=== PATIENT | female | born 1950 | race Caucasian/White ===

== ENCOUNTER → 2017-11-12 | Outpatient (CLI) | payer MEDICARE ==
[~2017-11-12] MED LIST: ADJUSTABLE COMM1 MIS; AMBI10TA PO; BETH25TA2 PO; BUPR150T3 PO; CALC1TAB87 PO; DICL50TA3 PO; DICY10CA12 PO; FEXO15TA PO; FLUT1SPR5 EACH NARE; LEVO100T5 PO; MONT10TA2 PO; VITA1000 PO; WALKER WHEELS/F1 MIS; WHEA1POW9 PO
[2017-11-12 09:04] LABS: HEMATOCRIT 39.8 % (35.0-46.0); HEMOGLOBIN 13.8 GM/DL (11.6-15.3); MEAN CELL VOLUME 88.3 FL (80.0-100.0); MEAN CORPUSCULAR HEMOGLOBIN 30.6 PG (27.0-34.0); MEAN CORPUSCULAR HGB CONC 34.7 % (32.0-36.0); MEAN PLATELET VOLUME 8.7 FL (7.0-11.0); PLATELET COUNT 274 TH/MM3 (150-450); RED BLOOD COUNT 4.51 MIL/MM3 (4.00-5.30); RED CELL DISTRIBUTION WIDTH 13.5 % (11.6-17.2); WHITE BLOOD COUNT 6.5 TH/MM3 (4.0-11.0)
[2017-11-12 09:10] LABS: INTERNATIONAL NORMALIZED RATIO 0.9 RATIO; PROTHROMBIN TIME - PATIENT 9.6 SEC (9.8-11.6)
[2017-11-12 09:35] LABS: ALBUMIN 3.5 GM/DL (3.4-5.0); AST (GOT) 13 U/L (15-37); BICARBONATE 27.6 MEQ/L (21.0-32.0); BLOOD UREA NITROGEN 27 MG/DL (7-18); CALCIUM 8.6 MG/DL (8.5-10.1); CHLORIDE 108 MEQ/L (98-107); CREATININE 0.96 MG/DL (0.50-1.00); GLOMERULAR FILTRATION RATE 58 ML/MIN (>89); GLUCOSE,FASTING 102 MG/DL (74-99); SODIUM (NA) 140 MEQ/L (136-145)
[2017-11-12 09:37] LABS: ALT (GPT) 19 U/L (10-53)
[2017-11-12 09:39] LABS: ALKALINE PHOSPHATASE 105 U/L (45-117); TOTAL BILIRUBIN ADULT 0.3 MG/DL (0.2-1.0); TOTAL PROTEIN 7.1 GM/DL (6.4-8.2)
[2017-11-12 10:35] LABS: BILIRUBIN, URINE NEG (NEG); BLOOD, URINE NEG (NEG); GLUCOSE,URINE NEG (NEG); KETONE, URINE NEG (NEG); MUCUS URINE FEW /lpf (OCC); NITRITE,URINE NEG (NEG); PH, URINE 5.5 (5.0-8.5); SQUAMOUS EPITHELIAL CELL URINE 3 /hpf (0-5); URINE COLOR YELLOW (YELLW/STRAW); URINE LEUKOCYTE ESTERASE TRACE (NEG)
== END ==
LOC: CPRE 08:19
PROVIDERS: ATTEND Surgery
DX: Z01.812 Encounter for preprocedural laboratory examination (principal); M79.609 Pain in unspecified limb
CPT/HCPCS: 36415; 80053; 81001; 85027; 85610; 85730

== ENCOUNTER 2017-11-18 08:13 | Inpatient (IN) | payer MEDICARE ==
--- NOTE | 2017-11-14 15:09 | MH ---
cc: Dong YU M.D. DATE OF ADMISSION 11/18/2017 ADMITTING DIAGNOSIS Osteoarthritic degeneration right hip, now being admitted for a right total hip arthroplasty. HISTORY OF PRESENT ILLNESS This pleasant 67-year-old female is being admitted today for a right total hip arthroplasty due to severe painful osteoarthritic degeneration right hip. PAST MEDICAL HISTORY 1. Anxiety. 2. Hypothyroidism. 3. Back pain. MEDICATIONS Current medications: 1. Levothyroxine. 2. Dicyclomine. 3. Bupropion. 4. Bethanechol. 5. Voltaren; stopped before surgery. 6. Ambien. PAST SURGICAL HISTORY 1. Bladder prolapse repair. 2. Cataract surgery. 3. Tonsillectomy. REVIEW OF SYSTEMS Noncontributory. FAMILY HISTORY Noncontributory. SOCIAL HISTORY She does not smoke, drinks alcohol occasionally. ALLERGIES NICKEL. PHYSICAL EXAMINATION GENERAL: We find a 67-year-old female, well-developed, well-nourished, oriented x3, complaining of pain in her right hip. VITAL SIGNS: Blood pressure 122/89, pulse 76 and regular, respirations 16, temperature 97.9, pulse oximetry 97% on room air. HEENT: Eyes PERRLA, EOMI. Ears, nose and mouth clear. NECK: Supple. LUNGS: Clear. HEART: Regular rate. ABDOMEN: Soft. Positive bowel sounds. Nontender. EXTREMITIES: The right hip has decreased range of motion. She is neurovascularly intact to her toes. IMPRESSION The impression at this time is severe painful osteoarthritic degeneration, right hip. PLAN Admission for right total arthroplasty today. The patient was given a prescription for postoperative pain and anticoagulation control in the office. She understands to use Hibiclens scrub and Bactroban preoperatively. She plans on going home with home health care after surgical stay in the hospital. MD AGUSTÍN Mcrae/ROJAS /2:37 PM /2:40 PM
[~2017-11-18] VITALS: Ht 162.6 cm; Wt 82.4 kg
[~2017-11-18 08:13] MED LIST changes: -ADJUSTABLE COMM1 MIS; -BETH25TA2 PO; -WALKER WHEELS/F1 MIS; -WHEA1POW9 PO
[2017-11-18] MEDS ORDERED: CHLORHEXIDINE GLUCONATE 2 % 1 PACK (2 CLOTHS) TOPICAL PRN (09:00)
[2017-11-18] MEDS ORDERED: TRANEXAMIC ACID IV SCH ×2 (09:00→12:00)
[2017-11-18] MEDS ORDERED: SODIUM CHLORIDE 0.9% IV SCH ×2 (09:00→12:00)
[2017-11-18] MEDS ORDERED: CHLORHEXIDINE GLUCONATE 4% SOLN 120 ML BTL TOPICAL SCH (09:00)
[2017-11-18] MEDS ORDERED: ceFAZolin 2 GM PREMIX 50 ML IV SCH (09:00)
[2017-11-18] MEDS ORDERED: POVIDONE IODINE 5% (ANTISEPSIS KIT) 4 APPLICATIONS EACH NARE PRN (09:00)
[2017-11-18] MEDS ORDERED: METOPROLOL TARTRATE 25 MG TAB PO PRN (09:00)
[2017-11-18] MEDS ORDERED: EXPAREL PERI-ARTICULAR INJECTION (TOTAL VOL. 120 ML) P-ARTICULR SCH ×2 (09:00)
[2017-11-18] MEDS ORDERED: VANCOMYCIN 1000 MG/NS 250 ML (for <70 kg) IV SCH ×2 (09:00)
[2017-11-18] MEDS ORDERED: SODIUM CHLORID 0.9% 500 ML IV PRN (09:00)
[2017-11-18] MEDS ORDERED: LACTATED RINGER'S 1000 ML IV PRN (09:00)
[2017-11-18] MEDS ORDERED: WHEA1POW9 PO (09:38)
[2017-11-18] MEDS ORDERED: ceFAZolin INJ 1,000 MG VIAL ONE (10:00)
--- NOTE | 2017-11-18 10:52 | HHI.FF ---
Face to Face Verification Diagnosis: (1) Status post total hip replacement, right Physical Therapy Gait training Hip: Total hip, Protocol: Right, Posterior hip precautions, Abduction pillow while in bed, Progress to weight bearing Canvas Knee Splint: When in bed & 2 pillows btw thighs Nursing RN: 3 days/week x 2 weeks Dressing Changes: Do not change dressing I have seen patient Abby Jack on 11/18/17. My clinical findings support the need for the requested home health care services because: Limited ability to care for self High risk of falls I certify that my clinical findings support that this patient is homebound because: Unsteady gait/balance Dong Neil MD Nov 18, 2017 10:52
[2017-11-18] MEDS ORDERED: ADJUSTABLE COMM1 MIS (10:54)
[2017-11-18] MEDS ORDERED: WALKER WHEELS/F1 MIS (10:54)
[2017-11-18] MEDS ORDERED: Post-op Orders (for Pharmacy) XX ONE (11:00)
[2017-11-18] MEDS ORDERED: MISCELLANEOUS NURSING INFORMATION XX PRN (11:00)
[2017-11-18] MEDS ORDERED: NALOXONE HCL 0.4 MG/ML AMP IV PUSH PRN (11:00)
[2017-11-18] MEDS ORDERED: ACETAMINOPHEN/HYDROcodone 325 MG/7.5 MG TAB PO PRN (11:00)
[2017-11-18] MEDS ORDERED: TRANEXAMIC ACID INJ 0 MG in SODIUM CHLORIDE 0.9% INJ 100 ML IV SCH (11:00)
[2017-11-18] MEDS ORDERED: BISACODYL 10 MG SUPP RECTAL PRN (11:00)
[2017-11-18] MEDS ORDERED: PROPOFOL 500 MG/50 ML INJ 100 ML ONE (11:01)
[2017-11-18] MEDS ORDERED: PHENYLEPH/NS 1000 MCG/10 ML SYR IV ONE (12:00)
[2017-11-18] MEDS ORDERED: LACTATED RINGER'S 1000 ML INJ 2,000 ML IV ONE (12:00)
[2017-11-18] MEDS ORDERED: ePHEDrine/NS 25 MG/5 ML SYRINGE IV ONE (12:00)
[2017-11-18] MEDS ORDERED: LORATADINE 10 MG TAB PO PRN (13:00)
[2017-11-18] MEDS: DICYCLOMINE HCL 10 MG CAP PO SCH ×3 (13:00→20:22)
[2017-11-18] MEDS ORDERED: DO NOT ADM ANY ANTICOAGULANT DRUGS PRN (14:15)
[2017-11-18] MEDS ORDERED: MIDAZOLAM HCL 2 MG/2 ML VIAL ONE (14:25)
--- NOTE | 2017-11-18 14:51 | RADRPT ---
EXAM DATE/TIME: 11/18/2017 14:40 [place] COMPARISON: No previous studies available for comparison. INDICATIONS : Post op right hip. MEDICAL HISTORY : None. SURGICAL HISTORY : None. ENCOUNTER: Initial ACUITY: 1 day PAIN SCORE: Non-responsive. LOCATION: Right hip. FINDINGS: The patient is status post a total hip arthroplasty with a bipolar prosthesis. Prosthesis is well-sea maxim. Alignment is anatomic. A fracture is not appreciated. CONCLUSION: Anatomic alignment. Martin Fontana MD FACR on November 18, 2017 at 14:49 Board Certified Radiologist. This report was verified electronically.
[2017-11-18] MEDS: LACTATED RINGER'S 1000 ML INJ 1,000 ML IV SCH ×2 (14:58→20:23)
--- NOTE | 2017-11-18 15:15 | PD.CONS ---
HPI Service [facility] Hospitalists Consult Requested By Dr. Neil Reason for Consult Medical management Primary Care Physician Alisha Hernandez MD Diagnoses: (1) Osteoarthritis of right hip (2) Anxiety (3) Hypothyroidism (4) Status post total hip replacement, right History of Present Illness 67-year-old female admitted for right hip arthroplasty. The patient has had issues with severe deteriorating osteoarthritis of the right hip. Apparently failed conservative management. She was admitted for surgical intervention. Hospitalist service consulted for medical management. Chart extensively reviewed. Patient has a history of hypothyroidism and anxiety. She reports that these conditions has been fairly well controlled. She is seen postoperatively. She reports her pain is well controlled. No nausea. No new complaints. Review of Systems Constitutional: DENIES: Fever, Chills Musculoskeletal: COMPLAINS OF: Joint pain Except as stated in HPI: all other systems reviewed are Neg Past Family Social History Allergies: Coded Allergies: nickel (Verified Adverse Reaction, Severe, Rash, 11/18/17) Past Medical History Osteoarthritis Hypothyroidism Anxiety Gastroparesis Past Surgical History Bladder prolapse repair Tonsillectomy Cataract surgery Status post right hip arthroplasty Reported Medications Reported Meds & Active Scripts Active Reported Benefiber (Wheat Dextrin) 3 Gram/3.8 Gram Powder 1 Pkt PO DAILY Irma Allergy (Fexofenadine HCl) 180 Mg Tab 180 Mg PO DAILY PRN Singulair (Montelukast Sodium) 10 Mg Tab 10 Mg PO HS PRN Flonase Nasal Byers (Fluticasone Nasal Byers) 50 Mcg/Act Byers 50 Mcg EACH NARE BID Ambien (Zolpidem Tartrate) 10 Mg Tab 10 Mg PO HS PRN Calcium 600 with Vitamin D (Calcium Carbonate-Cholecalciferol) 600-400 mg-Unit Tab 1 Tab PO DAILY Vitamin D-1000 (Cholecalciferol) 1,000 Unit Tab 4,000 Units PO DAILY Diclofenac Sodium DR (Diclofenac Sodium) 50 Mg Tabdr 50 Mg PO BID Bupropion HCl ER 24 HR (Bupropion HCl) 150 Mg Tab Unknown Dose PO DAILY Dicyclomine (Dicyclomine HCl) 10 Mg Cap 10 Mg PO QID Levothyroxine (Levothyroxine Sodium) 100 Mcg Tab 100 Mcg PO DAILY Family History Reviewed and is noncontributory. Social History Patient denies tobacco, alcohol, or illicit drug use. Physical Exam Vital Signs Vital Signs Date Time Temp Pulse Resp B/P (MAP) Pulse Ox O2 Delivery O2 Flow Rate FiO2 11/18/17 15:00 66 20 124/60 (81) 100 Room Air 11/18/17 14:45 59 19 119/71 (87) 100 Room Air 11/18/17 14:30 60 22 94/53 (67) 100 Nasal Cannula 2 11/18/17 14:22 96.2 11/18/17 14:20 96.2 67 20 101/57 (72) 98 Nasal Cannula 2 11/18/17 09:39 98.7 59 16 148/80 (102) 95 Physical Exam GENERAL: This is a well-nourished, well-developed patient, in no apparent distress. SKIN: No rashes, ecchymoses or lesions. Cool and dry. HEAD: Atraumatic. Normocephalic. No temporal or scalp tenderness. EYES: Pupils equal round and reactive. Extraocular motions intact. No scleral icterus. No injection or drainage. ENT: Nose without bleeding, purulent drainage or septal hematoma. Throat without erythema, tonsillar hypertrophy or exudate. Uvula midline. Airway patent. NECK: Trachea midline. No JVD or lymphadenopathy. Supple, nontender, no meningeal signs. CARDIOVASCULAR: Regular rate and rhythm without murmurs, gallops, or rubs. RESPIRATORY: Clear to auscultation. Breath sounds equal bilaterally. No wheezes , rales, or rhonchi. GASTROINTESTINAL: Abdomen soft, non-tender, nondistended. No hepato-splenomegaly , or palpable masses. No guarding. MUSCULOSKELETAL: Right lower extremity in immobilizer. Neurovascularly intact at the foot. NEUROLOGICAL: Awake and alert. Cranial nerves II through XII intact. Motor and sensory grossly within normal limits. Five out of 5 muscle strength in all muscle groups. Normal speech. Imaging Last Impressions Hip X-Ray 11/18/17 1047 Signed Impressions: Service Date/Time: Saturday, November 18, 2017 14:40 - CONCLUSION: Anatomic alignment. Martin Fontana MD FACR Assessment and Plan Problem List: (1) Status post total hip replacement, right ICD Code: Z96.641 - Presence of right artificial hip joint Plan: Routine postoperative care Pain management. Physical therapy Further plans per orthopedics. (2) Osteoarthritis of right hip ICD Code: M16.11 - Unilateral primary osteoarthritis, right hip (3) Hypothyroidism ICD Code: E03.9 - Hypothyroidism, unspecified Plan: Continue home dose Synthroid. (4) Anxiety ICD Code: F41.9 - Anxiety disorder, unspecified Plan: Appeared to be fairly well controlled. Continue bupropion Abdoulaye Chow MD Nov 18, 2017 15:15
--- NOTE | 2017-11-18 17:05 | HHI.PR ---
Immediate Post Op Note Procedure Date: Nov 18, 2017 Pre Op Diagnosis: severe painful osteoarthritic degeneration right hip. Post Op Diagnosis: osteoarthritic degeneration right hip. Surgeon: Dong Neil MD Fur Stretcher(s): sheila DOUGLAS Procedure: Right total hip Arthroplasty Complications: none Specimen(s) removed: none Estimated blood loss: 400cc Anesthesia: General Drains: None IVF Urinary Output (mLs): 0 (no lincoln) Tourniquet time (min at mmHg) none Patient to: PACU Patient Condition: Good Implant/Devices: SEE IMPLANT LOG (if applicable) Date/Time of Procedure: SEE SURGICAL CARE RECORD Sheila Cerda Nov 18, 2017 17:05
[2017-11-18] MEDS: ACETAMINOPHEN/HYDROcodone 325 MG/7.5 MG TAB PO PRN ×2 (17:54→23:06)
[2017-11-18] MEDS ORDERED: *MEPERIDINE 25 MG INJ VIAL PERIprocedural Use ONLY ONE (18:09)
[2017-11-18 19:00] VITALS: BP 149/73; PULSE 79; RESP 17; TEMP 100.2; O2SAT 95
[2017-11-18] MEDS: MAGNESIUM HYDROXIDE SUSP 30 ML CUP PO PRN (20:22)
[2017-11-18] MEDS: FLUTICASONE PROPIONATE 50 MCG/ACT 16 GM NASAL SPRAY EACH NARE SCH (20:22)
[2017-11-18] MEDS ORDERED: BETH25TA2 PO (20:25)
[2017-11-18] MEDS: ZOLPIDEM TARTRATE 10 MG TAB PO PRN ×2 (20:29→23:58)
[2017-11-18] MEDS ORDERED: MONTELUKAST SODIUM 10 MG TAB PO PRN (21:00)
[2017-11-18] MEDS: ONDANSETRON HCL 4 MG/2 ML VIAL IVP PRN (23:59)
[2017-11-19] VITALS (7 sets, daily range): BP systolic 110–128; BP diastolic 58–69; PULSE 72–88; RESP 17–18; TEMP 97.4–101.3; O2SAT 91–94
[2017-11-19] MEDS: ACETAMINOPHEN/HYDROcodone 325 MG/7.5 MG TAB PO PRN (05:08)
[2017-11-19] MEDS: LACTATED RINGER'S 1000 ML INJ 1,000 ML IV SCH ×2 (05:09→20:53)
[2017-11-19] MEDS: LEVOTHYROXINE SODIUM 100 MCG TAB PO SCH (05:13)
[2017-11-19 06:26] LABS: HEMATOCRIT 34.1 % (35.0-46.0); HEMOGLOBIN 11.7 GM/DL (11.6-15.3)
--- NOTE | 2017-11-19 06:48 | MP ---
cc: Dong NEIL M.D. DATE OF SURGERY 11/18/2017 PREOPERATIVE DIAGNOSIS Osteoarthritic degeneration right hip. POSTOPERATIVE DIAGNOSIS Osteoarthritic degeneration right hip. SURGERY PERFORMED Right total hip arthroplasty using Aesculap components, size 14 standard stem with a 36 short ceramic head, a 54 shell, with a 36 liner and a 6.5 x 24-mm screw. SURGEON Dr. Neil MUSICAL ENGINEER MISAEL Samuels ANESTHESIA Spinal. PROCEDURE The patient was brought to the Operating Room, where after successful induction of spinal anesthesia was placed on the operating room table in the left lateral decubitus position. The right hip, thigh and leg were prepped and draped in the usual manner. A posterolateral approach was then utilized by making an incision over the proximal portion of the femur lateral aspect, carried across the greater trochanter, carried posterior in a curved incision toward the buttock. The incision was carried down through the subcutaneous tissue, through the fibers of the tensor fascia alma and gluteus tai to expose the greater trochanteric bursa. This was then removed by sharp and blunt dissection. The hip was then internally rotated to expose the insertions of the short external rotators of the hip and were incised at their insertion into the greater trochanter and reflected posterior to protect the sciatic nerve. These were held with a Charnley retractor to better visualize the hip joint. The capsule was identified and removed by sharp dissection. The hip was then dislocated by internal rotation and flexion of the hip. The femoral calcar was then measured using the trial components for the appropriate length cut of the neck using an oscillating saw. After the cut was made the head was removed. The acetabulum was then approached and measured, the acetabulum reamed with the acetabular reamers. Next, the femoral calcar was approached by first inserting a canal finder followed by rigid reamers, followed by a cookie-cutter to the appropriate size, in this case being a #15. The broach was left in place and a planer used to plane the calcar to a smooth finish. The broach was then removed. The trial components were then inserted into place, the hip reduced, found to track smoothly with no evidence of subluxation or dislocation. All trial components were removed. The wound was irrigated copiously with antibiotic solution and Water Pik. The actual components were then inserted and impacted into place using the Aesculap components, size 14 standard stem with a 36 short ceramic head, a 54 shell, with a 36 liner and a 6.5 x 24-mm screw. The hip was reduced, found to track smoothly with no evidence of subluxation or dislocation. The wound was irrigated copiously with antibiotic solution, meticulous hemostasis achieved. 60 cc of Exparel were used around the hip joint, staying away from the sciatic nerve for postop pain control. The remains of the capsule were approximated using interrupted #1 Vicryl, the deep fascia approximated with running #2 Quill, the subcutaneous tissue approximated using interrupted and running 2-0 and 3-0 Monocryl suture, Steri-Strips and sterile dressing, a knee immobilizer and abduction pillow brace. The sciatic nerve was identified and protected throughout the procedure. The estimated blood loss was 400 cc. No drain utilized. Sponge and suture counts were correct. The patient tolerated the procedure well and left the operating room in satisfactory condition. MISAEL Samuels, was present during the entire procedure to include patient positioning and the procedure. The medical necessity of the nurse practitioner professional nursing assistant was indicated in this case due to the surgical complexity of the case itself. During the surgical case the business office technology instructor was working the back table while my surveyor instrument assistant MISAEL was directly assisting me. J. Abhinav Neil MD JRAleta/SSB /1:43 PM /6:19 AM
[2017-11-19] MEDS: ONDANSETRON HCL 4 MG/2 ML VIAL IVP PRN (08:05)
[2017-11-19] MEDS: CHOLECALCIFEROL (VIT D3) 1000 UNIT TAB PO SCH (08:09)
[2017-11-19] MEDS: CALCIUM/VITAMIN D 250 MG/125 U TAB PO SCH (08:09)
[2017-11-19] MEDS: DICYCLOMINE HCL 10 MG CAP PO SCH ×4 (08:09→20:50)
[2017-11-19] MEDS: FLUTICASONE PROPIONATE 50 MCG/ACT 16 GM NASAL SPRAY EACH NARE SCH ×2 (08:10→20:51)
[2017-11-19] MEDS ORDERED: WHEAT DEXTRIN PO SCH (09:00)
[2017-11-19] MEDS ORDERED: PROMETHAZINE HCL 25 MG SUPP RECTAL PRN (10:30)
[2017-11-19] MEDS ORDERED: METOCLOPRAMIDE HCL 10 MG/2 ML VIAL IV PUSH PRN (10:30)
--- NOTE | 2017-11-19 11:59 | PD.ORT.PN ---
Subjective Subjective Remarks Pt having problem with nausea. Now controlled with Phenergan suppository. Objective Vitals Vital Signs Date Time Temp Pulse Resp B/P (MAP) Pulse Ox O2 Delivery O2 Flow Rate FiO2 11/19/17 08:00 98.0 82 18 117/61 (79) 91 11/19/17 05:48 21 11/19/17 04:20 101.3 82 17 128/60 (82) 92 11/19/17 00:35 100.2 81 17 124/64 (84) 92 11/18/17 19:00 100.2 79 17 149/73 (98) 95 11/18/17 18:50 98.4 70 15 138/95 (109) 97 Room Air 11/18/17 18:00 72 18 146/70 (95) 95 Room Air 11/18/17 17:00 76 17 116/88 (97) 95 Room Air 11/18/17 16:30 66 18 126/61 (82) 95 Room Air 11/18/17 16:15 97.8 67 15 115/59 (77) 98 Room Air 11/18/17 16:00 63 19 128/62 (84) 95 Room Air 11/18/17 15:45 60 16 121/58 (79) 98 Room Air 11/18/17 15:30 56 16 126/65 (85) 97 Room Air 11/18/17 15:15 55 19 126/63 (84) 100 Room Air 11/18/17 15:15 96.2 11/18/17 15:00 66 20 124/60 (81) 100 Room Air 11/18/17 14:45 59 19 119/71 (87) 100 Room Air 11/18/17 14:30 60 22 94/53 (67) 100 Nasal Cannula 2 11/18/17 14:22 96.2 11/18/17 14:20 96.2 67 20 101/57 (72) 98 Nasal Cannula 2 I/O 11/18/17 11/18/17 11/18/17 11/19/17 11/19/17 11/19/17 06:59 14:59 22:59 06:59 14:59 22:59 Intake Total 3000 ml 673 ml 1250 ml 480 ml Output Total 400 ml 1650 ml Balance 2600 ml -977 ml 1250 ml 480 ml Intake Oral 465 ml 480 ml IV Total 208 ml 1250 ml Other 3000 ml Output Urine Total 1650 ml Estimated Blood Loss 400 ml # Voids 1 1 2 # Bowel Movements 0 0 Result Diagram: 11/19/17 0425 Objective Remarks In bed at present time. NV intact to toes. No calf tenderness. Assessment & Plan Ortho Post Op Day #: 1 Problem List: Assessment and Plan OOB, PT, Home tomorrow if no nausea and VS stable and afebrile. Dong Neil MD Nov 19, 2017 11:59
[2017-11-19] MEDS: APIXABAN 2.5 MG TABLET PO SCH ×2 (13:49→23:43)
--- NOTE | 2017-11-19 14:47 | HHI.PR ---
Subjective Remarks Patient had nausea and vomiting this morning. Phenergan was ordered. She is feeling better and tolerated lunch. Objective Vitals Vital Signs Date Time Temp Pulse Resp B/P (MAP) Pulse Ox O2 Delivery O2 Flow Rate FiO2 11/19/17 12:00 97.4 72 18 126/60 (82) 92 11/19/17 08:00 98.0 82 18 117/61 (79) 91 11/19/17 05:48 21 11/19/17 04:20 101.3 82 17 128/60 (82) 92 11/19/17 00:35 100.2 81 17 124/64 (84) 92 11/18/17 19:00 100.2 79 17 149/73 (98) 95 11/18/17 18:50 98.4 70 15 138/95 (109) 97 Room Air 11/18/17 18:00 72 18 146/70 (95) 95 Room Air 11/18/17 17:00 76 17 116/88 (97) 95 Room Air 11/18/17 16:30 66 18 126/61 (82) 95 Room Air 11/18/17 16:15 97.8 67 15 115/59 (77) 98 Room Air 11/18/17 16:00 63 19 128/62 (84) 95 Room Air 11/18/17 15:45 60 16 121/58 (79) 98 Room Air 11/18/17 15:30 56 16 126/65 (85) 97 Room Air 11/18/17 15:15 55 19 126/63 (84) 100 Room Air 11/18/17 15:15 96.2 11/18/17 15:00 66 20 124/60 (81) 100 Room Air I/O 11/18/17 11/18/17 11/18/17 11/19/17 11/19/17 11/19/17 07:00 15:00 23:00 07:00 15:00 23:00 Intake Total 3000 ml 673 ml 1250 ml 480 ml Output Total 400 ml 1650 ml Balance 2600 ml -977 ml 1250 ml 480 ml Intake Oral 465 ml 480 ml IV Total 208 ml 1250 ml Other 3000 ml Output Urine Total 1650 ml Estimated Blood Loss 400 ml # Voids 1 1 2 # Bowel Movements 0 0 Result Diagram: 11/19/17 0425 Procedures GENERAL: No acute distress. CARDIOVASCULAR: Regular rate and rhythm. RESPIRATORY: No accessory muscle use. Clear to auscultation. Breath sounds equal bilaterally. GASTROINTESTINAL: Abdomen soft, non-tender, nondistended. Hepatic and splenic margins not palpable. MUSCULOSKELETAL: Right LE in immobilizer. Neurovascularly intact at the foot/ toes NEUROLOGICAL: Awake and alert. Normal speech. PSYCHIATRIC: Appropriate mood and affect; insight and judgment normal. A/P Problem List: (1) Status post total hip replacement, right ICD Code: Z96.641 - Presence of right artificial hip joint Plan: Routine postoperative care Pain management. Physical therapy Further plans per orthopedics. (2) Osteoarthritis of right hip ICD Code: M16.11 - Unilateral primary osteoarthritis, right hip (3) Nausea & vomiting ICD Code: R11.2 - Nausea with vomiting, unspecified Plan: Likely related to Narcotics and Gastroparesis Much improved with Phenergan Reglan as needed. (4) Hypothyroidism ICD Code: E03.9 - Hypothyroidism, unspecified Plan: Continue home dose Synthroid. (5) Anxiety ICD Code: F41.9 - Anxiety disorder, unspecified Plan: Appeared to be fairly well controlled. Continue bupropion Abdoulaye Chow MD Nov 19, 2017 14:47
[2017-11-19] MEDS: ACETAMINOPHEN 325 MG TAB PO PRN ×2 (17:30→23:43)
[2017-11-19] MEDS: DOCUSATE SODIUM 100 MG CAP PO SCH (20:50)
[2017-11-19] MEDS: MULTIVITAMINS/MINERALS THERAPEUTIC TAB PO SCH (20:50)
[2017-11-19] MEDS: MAGNESIUM HYDROXIDE SUSP 30 ML CUP PO PRN (20:51)
[2017-11-19] MEDS: BETHANECHOL CHL 25 MG TAB PO SCH (20:51)
[2017-11-19] MEDS: ZOLPIDEM TARTRATE 10 MG TAB PO PRN (23:43)
[2017-11-20 04:30] VITALS: BP 117/62; PULSE 83; RESP 18; TEMP 100.4; O2SAT 93
[2017-11-20] MEDS: LEVOTHYROXINE SODIUM 100 MCG TAB PO SCH (05:55)
[2017-11-20] MEDS: ACETAMINOPHEN 325 MG TAB PO PRN ×2 (05:56→12:14)
[2017-11-20 07:14] LABS: HEMATOCRIT 33.9 % (35.0-46.0); HEMOGLOBIN 11.4 GM/DL (11.6-15.3)
--- NOTE | 2017-11-20 07:59 | PD.ORT.PN ---
Subjective Subjective Remarks Pt having no further problem with nausea. Objective Vitals Vital Signs Date Time Temp Pulse Resp B/P (MAP) Pulse Ox O2 Delivery O2 Flow Rate FiO2 11/20/17 04:30 100.4 83 18 117/62 (80) 93 11/19/17 23:55 99.6 88 18 110/60 (77) 93 11/19/17 20:25 99.1 80 18 121/69 (86) 94 11/19/17 16:00 99.6 79 18 127/58 (81) 91 11/19/17 12:00 97.4 72 18 126/60 (82) 92 11/19/17 08:00 98.0 82 18 117/61 (79) 91 I/O 11/19/17 11/19/17 11/19/17 11/20/17 11/20/17 11/20/17 06:59 14:59 22:59 06:59 14:59 22:59 Intake Total 1250 ml 960 ml 240 ml 240 ml Balance 1250 ml 960 ml 240 ml 240 ml Intake Oral 960 ml 240 ml 240 ml IV Total 1250 ml # Voids 3 1 1 # Bowel Movements 0 0 0 Result Diagram: 11/20/17 0630 Objective Remarks In bed at present time. NV intact to toes. No calf tenderness. Assessment & Plan Ortho Post Op Day #: 2 Problem List: Assessment and Plan OOB, PT, Home today with HHC and PT. Dong Neil MD Nov 20, 2017 07:59
[2017-11-20 08:00] VITALS: BP 97/60; PULSE 80; RESP 16; TEMP 99; O2SAT 92
--- NOTE | 2017-11-20 08:02 | HHI.DS ---
Discharge Summary Admission Date Nov 18, 2017 at 08:21 Discharge Date: Nov 20, 2017 Admitting Diagnosis Osteoarthritic degeneration right hip Diagnosis: (1) Status post total hip replacement, right Diagnosis: Principal ICD Codes: Z96.641 - Presence of right artificial hip joint Brief History This is a 67 year old female patient CBC/BMP: 11/20/17 0630 Significant Findings Laboratory Tests Test 11/19/17 04:25 11/20/17 06:30 Hematocrit 34.1 % (35.0-46.0) 33.9 % (35.0-46.0) Hemoglobin 11.4 GM/DL (11.6-15.3) PE at Discharge In bed at present time. NV intact to toes. No calf tenderness. Hospital Course Patient underwent a right total hip arthroplasty on day of admission. She received a course of prophylactic IV antibiotics and within 23 hours started on anticoagulation therapy. She continued to improve had one bout of slight template night of surgery but remained afebrile thereafter. She tolerated food and fluid well and by mouth pain meds. She was discharged on second postoperative day in good condition with instructions for home healthcare and follow-up in the office. Pt Condition on Discharge: Good Discharge Disposition: Disch w/ Home Health Serv Discharge Instructions Diet Instructions: As Tolerated, No Restrictions Activities You Can Perform: Full Weight Bearing, Shower Only-No Bath Activities to Avoid: Bathing, Driving Dong Neil MD Nov 20, 2017 08:02
[2017-11-20] MEDS: FLUTICASONE PROPIONATE 50 MCG/ACT 16 GM NASAL SPRAY EACH NARE SCH (09:00)
[2017-11-20] MEDS: CALCIUM/VITAMIN D 250 MG/125 U TAB PO SCH (10:00)
[2017-11-20] MEDS: BETHANECHOL CHL 25 MG TAB PO SCH ×2 (10:00→12:14)
[2017-11-20] MEDS: CHOLECALCIFEROL (VIT D3) 1000 UNIT TAB PO SCH (10:00)
[2017-11-20] MEDS: MULTIVITAMINS/MINERALS THERAPEUTIC TAB PO SCH (10:01)
[2017-11-20] MEDS: DOCUSATE SODIUM 100 MG CAP PO SCH (10:01)
[2017-11-20] MEDS: DICYCLOMINE HCL 10 MG CAP PO SCH ×2 (10:03→12:14)
--- NOTE | 2017-11-20 10:43 | HHI.PR ---
Subjective Remarks Complaints of some nausea this morning. No emesis. Patient has been doing well with PT. Patient has been cleared by orthopedic surgery for discharge home today. Objective Vital Signs Date Time Temp Pulse Resp B/P (MAP) Pulse Ox O2 Delivery O2 Flow Rate FiO2 11/20/17 04:30 100.4 83 18 117/62 (80) 93 11/19/17 23:55 99.6 88 18 110/60 (77) 93 11/19/17 20:25 99.1 80 18 121/69 (86) 94 11/19/17 16:00 99.6 79 18 127/58 (81) 91 11/19/17 12:00 97.4 72 18 126/60 (82) 92 I/O 11/19/17 11/19/17 11/19/17 11/20/17 11/20/17 11/20/17 06:59 14:59 22:59 06:59 14:59 22:59 Intake Total 1250 ml 960 ml 240 ml 240 ml Balance 1250 ml 960 ml 240 ml 240 ml Intake Oral 960 ml 240 ml 240 ml IV Total 1250 ml # Voids 3 1 1 # Bowel Movements 0 0 0 Result Diagram: 11/20/17 0630 Objective Remarks GENERAL: NAD, A&Ox3 HEAD: Normocephalic. NECK: Supple, trachea midline. No lymphadenopathy. EYES: No scleral icterus. No injection or drainage. CARDIOVASCULAR: Regular rate and rhythm without murmurs, gallops, or rubs. RESPIRATORY: Breath sounds equal bilaterally. No accessory muscle use. GASTROINTESTINAL: Abdomen soft, non-tender, nondistended. MUSCULOSKELETAL: No cyanosis, or edema. Limited range of motion of right hip. Postop. SKIN: Warm and dry. NEURO: No focal neurological deficitis. A/P Problem List: (1) Status post total hip replacement, right ICD Code: Z96.641 - Presence of right artificial hip joint (2) Anxiety ICD Code: F41.9 - Anxiety disorder, unspecified (3) Hypothyroidism ICD Code: E03.9 - Hypothyroidism, unspecified (4) Osteoarthritis of right hip ICD Code: M16.11 - Unilateral primary osteoarthritis, right hip Assessment and Plan 67-year-old female status post right hip replacement surgery Osteoarthritis right hip Status post right hip replacement Orthopedic surgeon following Patient cleared for discharge by orthopedic surgery team Medically clear for surgery Resume home treatments Surgical management per surgical team recommendations Follow with orthopedic surgery as an outpatient Continue physical therapy as an outpatient Nausea Improved Stable for discharge if able to tolerate by mouth intake Hypothyroidism Continue Synthroid Follow as an outpatient Gen. anxiety disorder Stable Continue bupropion Continue to follow as an outpatient Discharge planning Patient medically clear for discharge to home today Dmitry Griffin MD Nov 20, 2017 10:43
[2017-11-20 11:57] VITALS: O2SAT 92
[2017-11-20] MEDS: APIXABAN 2.5 MG TABLET PO SCH (12:14)
[2017-11-20] MEDS: LACTATED RINGER'S 1000 ML INJ 1,000 ML IV SCH (12:14)
== END 2017-11-20 14:59 | disposition home health service (06) | DRG 470 ==
LOC: HSDI 08:21 → N06B 18:57
PROVIDERS: ADMIT Surgery; ATTEND Surgery
PROC: 0SR903A Replacement of Right Hip Joint with Ceramic Synthetic Substitute, Uncemented, Open Approach (ICD-10-PCS; principal; 2017-11-18 11:31)
DX: M16.11 Unilateral primary osteoarthritis, right hip (principal); K31.84 Gastroparesis; E03.9 Hypothyroidism, unspecified; F41.9 Anxiety disorder, unspecified; M54.9 Dorsalgia, unspecified
CPT/HCPCS: 73501; 85014; 85018; 86850; 86900; 86901; 94150; C1776; C9290; J0690; J2175; J2250; J2370; J2405; J3370; J7050; J7120; L1830